=== PATIENT | male | born 1990 | race Caucasian/White ===

== ENCOUNTER 2019-05-24 11:14 | Emergency (ER) | payer MEDICARE, MEDICAID ==
[~2019-05-24] VITALS: Ht 175.3 cm; Wt 72.7 kg
[~2019-05-24 11:14] MED LIST: CARV-50 PO
[2019-05-24] MEDS ORDERED: morphine 4 MG/ML inj SYRINge IV PRN ×3 (12:10→13:35)
[2019-05-24] MEDS ORDERED: ondansetron/PF 4mg/2ml inj IV ONE (12:10)
[2019-05-24] MEDS ORDERED: normal saline 1000ML IV soln IVB ONE (12:10)
[2019-05-24] MEDS ORDERED: piperacillin/tazo 3.375gm/50ml 50 ML IV ONE ×2 (12:24→18:00)
[2019-05-24 12:52] LABS: BASOPHILS # (AUTO) 0.1 X10'3 (0-0.2); BASOPHILS % (AUTO) 0.5 % (0-1); EOSINOPHILS # (AUTO) 0.1 X10'3 (0-0.9); EOSINOPHILS % (AUTO) 0.9 % (0-6); HEMATOCRIT 42.4 % (42.0-52.0); HEMOGLOBIN 14.5 g/dl (14.0-17.9); LYMPHOCYTES # (AUTO) 1.9 X10'3 (1.1-4.8); LYMPHOCYTES % (AUTO) 12.3 % (21-51); MEAN CORPUSCULAR HEMOGLOBIN 32.8 PG (27.0-31.0); MEAN CORPUSCULAR HGB CONC 34.1 g/dL (33.0-36.5); MEAN CORPUSCULAR VOLUME 96.3 FL (78-98); MONOCYTES # (AUTO) 0.9 X10'3 (0-0.9); MONOCYTES % (AUTO) 5.7 % (2-12); NEUTROPHILS # (AUTO) 12.4 X10'3 (1.8-7.7); NEUTROPHILS % (AUTO) 80.6 % (42-75); PLATELET COUNT 299 X10'3 (140-440); RED CELL DISTRIBUTION WIDTH 13.2 % (11.5-14.5); WHITE BLOOD COUNT 15.4 X10'3 (4.5-11.0)
[2019-05-24] MEDS ORDERED: ertapenem sod inj 1 GM in normal saline 100ml IV soln 100 ML IV ONE (13:05)
[2019-05-24 13:07] LABS: ALANINE AMINOTRANSFERASE 20 U/L (12-78); ALBUMIN 3.8 G/DL (3.4-5.0); ALBUMIN/GLOBULIN RATIO 1.4 (1.1-1.5); ALKALINE PHOSPHATASE 51 IU/L (46-116); ANION GAP 8 (8-16); ASPARTATE AMINO TRANSFERASE 8 U/L (10-37); BILIRUBIN,TOTAL 1.2 MG/DL (0.1-1.0); BLOOD UREA NITROGEN 6 MG/DL (7-18); BUN/CREATININE RATIO 6.5 (5.4-32.0); CALCIUM 8.5 MG/DL (8.5-10.1); CHLORIDE 109 MMOL/L (99-107); CREATININE 0.93 MG/DL (0.60-1.10); GLUCOSE 90 MG/DL (70-104); LIPASE 77 U/L (73-393); POTASSIUM 3.7 MMOL/L (3.5-5.1); SODIUM 143 MMOL/L (135-145); TOTAL CARBON DIOXIDE 25.9 MMOL/L (24-32); TOTAL PROTEIN 6.6 G/DL (6.4-8.2); eGFR > 90 ML/MIN
[2019-05-24 13:08] LABS: CLARITY,URINE CLEAR (Clear); COLOR,URINE YELLOW (Yellow); GLUCOSE, URINE NEGATIVE (Neg); KETONES,URINE NEGATIVE (Neg); LEUKOCYTE ESTERASE ,URINE NEGATIVE (Neg); NITRITES, URINE NEGATIVE (Neg); OCCULT BLOOD,URINE NEGATIVE (Neg); PROTEIN,URINE NEGATIVE (Neg); UROBILINOGEN,URINE 0.2 E.U/dL (0.2-1.0)
[2019-05-24 13:12] LABS: UA COLLECTION TYPE URINAL
[2019-05-24] MEDS ORDERED: LIDOcaine 1% 30ml preserv. free vial ONE (13:13)
[2019-05-24] MEDS ORDERED: BUPIVAcaine/PF 2.5 mg/ml (0.25%) 30ml vial ONE (13:13)
[2019-05-24] MEDS ORDERED: normal saline 1000ml 1,000 ML IV SCH (13:29)
[2019-05-24] MEDS ORDERED: magnesium hydroxide 30ml (MOM) UD suspension PO PRN (13:30)
[2019-05-24] MEDS ORDERED: mag hydrox/Alum hydrox/simeth 30ml oral suspension PO PRN (13:30)
[2019-05-24] MEDS ORDERED: acetaminophen 325mg tablet PO PRN ×2 (13:30)
[2019-05-24] MEDS ORDERED: ringers solution, lacted 1,000 ML IV SCH (13:34)
[2019-05-24] MEDS ORDERED: ondansetron/PF 4mg/2ml inj IV PRN (13:35)
[2019-05-24] MEDS ORDERED: proCHLORperazine 10 MG/2 ml inj IV PRN (13:35)
[2019-05-24] MEDS ORDERED: meperidine/PF 25mg/ml syringe IV PRN ×3 (13:35)
[2019-05-24] MEDS ORDERED: LIDOcaine 2% (20mg/ml) 5ml vial ONE (13:40)
[2019-05-24] MEDS ORDERED: midazolam 2 mg/2 ml injection ONE (13:40)
[2019-05-24] MEDS ORDERED: propofol inj 20 ML IV ONE (13:40)
[2019-05-24] MEDS ORDERED: fentaNYL/PF 50MCG/1 ML 2ML syringe ONE (13:40)
[2019-05-24] MEDS ORDERED: ondansetron/PF 4mg/2ml inj ONE (13:52)
[2019-05-24] MEDS ORDERED: rocuronium 10mg/ml inj IV ONE (13:52)
[2019-05-24] MEDS ORDERED: dexamethasone sod phosphate 10mg/ml inj ONE (13:52)
[2019-05-24] MEDS ORDERED: sevoflurane 250ml liquid IH ONE (13:52)
[2019-05-24] MEDS ORDERED: neostigmine methylsulfate 1 MG/ML 10ml vial ONE (13:52)
[2019-05-24] MEDS ORDERED: glycopyrrolate 0.2mg/ml inj ONE (13:52)
[2019-05-24] MEDS ORDERED: ketorolac trometh. 30mg/ml inj. ONE (13:52)
[2019-05-24] MEDS ORDERED: OMEP-50 PO (14:08)
[2019-05-24 14:53] VITALS: BP 147/99
--- NOTE | 2019-05-24 14:53 | NUR ---
Received from OR via , accompanied by Anesthesiologist DR PALM and report given by Anesthesiolgist. AWAKENS TO VOICE. VITALS STABLE. DRESSINGS DI. JEAN CLAUDE PAIN. ABD SOFT.
[2019-05-24] MEDS ORDERED: HYDROcodone/acetaminophen 5mg/325mg tablet PO PRN (15:00)
[2019-05-24] MEDS ORDERED: HYDROcodone/acetaminophen 10/325mg tab PO PRN (15:00)
[2019-05-24 15:03] VITALS: BP 135/87
[2019-05-24 15:13] VITALS: BP 139/94
[2019-05-24] MEDS ORDERED: HYDROcodone/acetaminophen 5mg/325mg tablet PO ONE (15:20)
[2019-05-24 15:23] VITALS: BP 143/95
[2019-05-24 15:33] VITALS: BP 140/89
[2019-05-24 15:43] VITALS: BP 138/86
--- NOTE | 2019-05-24 16:03 | NUR ---
AWAKE AND ORIENTED. VITALS STABLE. DRESSINGS DI. STATES PAIN IMPROVING HOME WITH PARANTS AT THIS TIME.
--- NOTE | 2019-05-24 16:48 | NUR ---
Discharged from recovery room Addendum: 05/24/19 at 1649 by Nica Mauro RN Amended: Links added.
[2019-05-24] MEDS ORDERED: carVEDilol 12.5mg tablet PO SCH (20:00)
== END 2019-05-24 16:53 | disposition home or self-care (01) ==
LOC: ER 11:14 → PACU 16:53 → ER 16:53
DX: K35.80 Unspecified acute appendicitis (principal); R10.31 Right lower quadrant pain; K21.9 Gastro-esophageal reflux disease without esophagitis; Z90.89 Acquired absence of other organs; Z98.890 Other specified postprocedural states; Z95.0 Presence of cardiac pacemaker; Z88.0 Allergy status to penicillin; Z88.1 Allergy status to other antibiotic agents; Z79.899 Other long term (current) drug therapy
CPT/HCPCS: 36415; 44970; 80053; 81003; 83690; 85025; 86885; 86900; 86901; 96374; 96375; 99285; J1100; J1335; J1885; J2001; J2175; J2250; J2270; J2405; J2704; J2710; J3010; J3490; J7030; J7120; 88304; A4215; A4618; A7000

== ENCOUNTER 2021-01-10 17:54 | Observation (INO) | payer MEDICARE, MEDICAID ==
[~2021-01-10] VITALS: Ht 175.3 cm; Wt 70.5 kg
[~2021-01-10 17:54] MED LIST changes: +OMEP-50 PO
[2021-01-10 18:21] LABS: BASOPHILS # (AUTO) 0.1 X10'3 (0-0.2); HEMOGLOBIN 15.2 g/dl (14.0-17.9); MONOCYTES # (AUTO) 0.9 X10'3 (0-0.9)
[2021-01-10 18:33] LABS: BASOPHILS % (AUTO) 0.7 % (0-1); EOSINOPHILS # (AUTO) 0.2 X10'3 (0-0.9); EOSINOPHILS % (AUTO) 1.4 % (0-6); HEMATOCRIT 45.8 % (42.0-52.0); LYMPHOCYTES # (AUTO) 2.5 X10'3 (1.1-4.8); LYMPHOCYTES % (AUTO) 19.2 % (21-51); MEAN CORPUSCULAR HEMOGLOBIN 31.3 PG (27.0-31.0); MEAN CORPUSCULAR HGB CONC 33.3 g/dL (33.0-36.5); MEAN PLATELET VOLUME 7.9 FL (7.4-10.4); MONOCYTES % (AUTO) 6.7 % (2-12); NEUTROPHILS # (AUTO) 9.3 X10'3 (1.8-7.7); PLATELET COUNT 339 X10'3 (140-440); RED BLOOD COUNT 4.88 X10'6 (4.70-6.10); RED CELL DISTRIBUTION WIDTH 13.3 % (11.5-14.5); WHITE BLOOD COUNT 12.9 X10'3 (4.5-11.0)
[2021-01-10 18:46] LABS: ALANINE AMINOTRANSFERASE 20 U/L (12-78); ALBUMIN 3.9 G/DL (3.4-5.0); ALBUMIN/GLOBULIN RATIO 1.3 (1.1-1.5); ALKALINE PHOSPHATASE 56 IU/L (46-116); ANION GAP 18 (8-16); ASPARTATE AMINO TRANSFERASE 15 U/L (10-37); BILIRUBIN,TOTAL 1.3 MG/DL (0.1-1.0); BLOOD UREA NITROGEN 10 MG/DL (7-18); BUN/CREATININE RATIO 11.6 (5.4-32.0); CALCIUM 8.5 MG/DL (8.5-10.1); CHLORIDE 104 MMOL/L (99-107); CREATININE 0.86 MG/DL (0.60-1.10); GLUCOSE 98 MG/DL (70-104); MAGNESIUM 1.7 MG/DL (1.5-2.4); SODIUM 142 MMOL/L (135-145); TOTAL CARBON DIOXIDE 19.8 MMOL/L (24-32); TOTAL PROTEIN 6.9 G/DL (6.4-8.2); eGFR > 90 ML/MIN
[2021-01-10 18:48] LABS: POTASSIUM 2.9 MMOL/L (3.5-5.1)
[2021-01-10] MEDS ORDERED: potassium Cl 20 mEq SR tablet PO STA (18:54)
[2021-01-10] MEDS ORDERED: magnesium 2GM in 50ml NS 50 ML IV ONE (19:00)
[2021-01-10] MEDS ORDERED: ASPI-10 PO (19:10)
[2021-01-10] MEDS ORDERED: OMEP40CA13 PO (19:10)
[2021-01-10] MEDS ORDERED: potassium Cl 40MEQ/1/2NS 520ml 520 ML IV PRN ×2 (19:30)
[2021-01-10] MEDS ORDERED: magnesium hydroxide 30ml (MOM) UD suspension PO PRN (19:30)
[2021-01-10] MEDS ORDERED: potassium Cl 20 mEq SR tablet PO PRN ×2 (19:30)
[2021-01-10] MEDS ORDERED: acetaminophen 325mg tablet PO PRN (19:30)
[2021-01-10] MEDS ORDERED: magnesium 2GM in 50ml NS 50 ML IV PRN (19:30)
[2021-01-10] MEDS ORDERED: magnesium Cl slow-release 64mg tablet PO PRN (19:30)
[2021-01-10] MEDS ORDERED: mag hydrox/Alum hydrox/simeth 30ml oral suspension PO PRN (19:30)
[2021-01-10] MEDS ORDERED: magnesium 4gm in 100ml NS 100 ML IV PRN (19:30)
--- NOTE | 2021-01-10 19:42 | NUR ---
BREAKING PRIMARY RN FOR BREAK; WILL CONT TO MONITOR
[2021-01-10] MEDS: carVEDilol 12.5mg tablet PO SCH (19:52)
[2021-01-10] MEDS: K and/or MAG REPLACEMENT MC SCH (20:18)
[2021-01-10 22:18] VITALS: BP 136/91
[2021-01-11] VITALS: BP 124/87
[2021-01-11 01:12] LABS: POTASSIUM 3.6 MMOL/L (3.5-5.1)
[2021-01-11 02:00] VITALS: BP 113/71
[2021-01-11 06:30] VITALS: BP 117/79
--- NOTE | 2021-01-11 06:37 | NUR ---
Problems reprioritized. Patient report given, questions answered & plan of care reviewed with Latrell.
[2021-01-11 07:35] LABS: BASOPHILS # (AUTO) 0.1 X10'3 (0-0.2); EOSINOPHILS # (AUTO) 0.4 X10'3 (0-0.9); EOSINOPHILS % (AUTO) 4.8 % (0-6); HEMATOCRIT 46.4 % (42.0-52.0); HEMOGLOBIN 15.8 g/dl (14.0-17.9); LYMPHOCYTES % (AUTO) 24.1 % (21-51); MEAN CORPUSCULAR HEMOGLOBIN 32.2 PG (27.0-31.0); MEAN CORPUSCULAR VOLUME 94.7 FL (78-98); MEAN PLATELET VOLUME 7.9 FL (7.4-10.4); MONOCYTES # (AUTO) 0.8 X10'3 (0-0.9); NEUTROPHILS # (AUTO) 5.1 X10'3 (1.8-7.7); NEUTROPHILS % (AUTO) 60.1 % (42-75); PLATELET COUNT 320 X10'3 (140-440); RED CELL DISTRIBUTION WIDTH 13.5 % (11.5-14.5); WHITE BLOOD COUNT 8.4 X10'3 (4.5-11.0)
[2021-01-11 07:46] LABS: ALANINE AMINOTRANSFERASE 28 U/L (12-78); ALBUMIN 4.2 G/DL (3.4-5.0); ALBUMIN/GLOBULIN RATIO 1.2 (1.1-1.5); ALKALINE PHOSPHATASE 60 IU/L (46-116); ANION GAP 13 (8-16); ASPARTATE AMINO TRANSFERASE 16 U/L (10-37); BILIRUBIN,TOTAL 2.1 MG/DL (0.1-1.0); BLOOD UREA NITROGEN 11 MG/DL (7-18); BUN/CREATININE RATIO 12.1 (5.4-32.0); CALCIUM 9.2 MG/DL (8.5-10.1); CHLORIDE 106 MMOL/L (99-107); CREATININE 0.91 MG/DL (0.60-1.10); GLUCOSE 90 MG/DL (70-104); POTASSIUM 4.6 MMOL/L (3.5-5.1); SODIUM 142 MMOL/L (135-145); TOTAL PROTEIN 7.6 G/DL (6.4-8.2); eGFR > 90 ML/MIN
[2021-01-11 07:48] LABS: MAGNESIUM 2.1 MG/DL (1.5-2.4)
[2021-01-11] MEDS: K and/or MAG REPLACEMENT MC SCH (08:00)
[2021-01-11] MEDS ORDERED: enoxaparin 40mg/0.4ml syringe SUBCUT SCH (08:00)
[2021-01-11] MEDS ORDERED: aspirin 325mg tablet PO SCH (08:30)
[2021-01-11] MEDS: carVEDilol 12.5mg tablet PO SCH (08:48)
[2021-01-11 12:00] VITALS: BP 121/90
[2021-01-11 15:00] VITALS: BP 130/94
[2021-01-11] MEDS ORDERED: iohexol 350MG/ML 100ml bottle IV ONE (15:57)
--- NOTE | 2021-01-12 11:31 | NUR ---
CASE MANAGEMENT DISCHARGE FOLLOW UP: Spoke with pt via telephone. Reports that he is feeling not too bad, slept well last night, admits to mental fatigue/fuzziness, occasional dizziness/chills, denies outright CP but unable to say if having palpitations or not as he states "they turned up my pacer" which he states feels odd when his heart rate drops below the threshold. He states that he did have an episode last night where his HR jumped up to 140s during his shower, but that it did come back down and has been alright since. Verbalizes understanding of s/sx requiring further evaluation/emergent assistance. Verbalizes understanding of medications. Asked pt if ED MD talked to him about the medication, Prilosec. Pt states that the ED MD did say that there is some evidence that Prilosec can cause low magnesium levels. Advised that pt talk with PCP regarding his continued use of Prilosec, he states that he will. Pt states that he has an appointment tomorrow for a blood draw as well as for the week after. Verbalizes understanding of the importance in making/keeping follow-up appointments, going to call to set up appointment with port traffic manager today. States no further questions/concerns at this time.
== END 2021-01-11 17:10 | disposition home or self-care (01) ==
LOC: ER 17:54 → ED HOLD 19:30 → MED 3N 22:15
PROVIDERS: ADMIT Internal Medicine; ATTEND Family Medicine
DX: R55 Syncope and collapse (principal); E83.42 Hypomagnesemia; E87.6 Hypokalemia; I45.81 Long QT syndrome; I25.10 Atherosclerotic heart disease of native coronary artery without angina pectoris; K21.9 Gastro-esophageal reflux disease without esophagitis; F12.90 Cannabis use, unspecified, uncomplicated; Z86.74 Personal history of sudden cardiac arrest; Z87.891 Personal history of nicotine dependence; Z95.810 Presence of automatic (implantable) cardiac defibrillator; Z79.899 Other long term (current) drug therapy; Z88.0 Allergy status to penicillin; Z88.1 Allergy status to other antibiotic agents; Z88.8 Allergy status to other drugs, medicaments and biological substances
CPT/HCPCS: 36415; 70496; 70498; 71045; 80053; 83735; 83880; 84132; 84484; 85025; 87081; 93005; 96365; 96366; 96372; 99285; G0378; J3475; Q9967; J1650